=== PATIENT | male | born 1980 | race Caucasian/White ===

== ENCOUNTER 2019-12-19 00:01 | Emergency (ER) | payer BC ==
[~2019-12-19] VITALS: Ht 182.9 cm; Wt 104.3 kg
[2019-12-19] MEDS ORDERED: HYDROCODONE/APAP 10MG-325MG TAB PO ONE (00:45)
--- NOTE | 2019-12-19 01:44 | Diagnostic Imaging Report ---
EXAMINATION: RIBS UNILAT W/CXR MULTIPLE VIEWS WITH CHEST PA INDICATION: s/p fall, left rib pain COMPARISON: None FINDINGS: TUBES and LINES: None. LUNGS: Lungs are well inflated. Lungs are clear. There is no evidence of pneumonia or pulmonary edema. PLEURA: No pleural effusion or pneumothorax. Biapical pleural scarring. HEART AND MEDIASTINUM: The cardiomediastinal silhouette is unremarkable. BONES AND SOFT TISSUES: Displaced fracture of the posterior left fourth rib with sclerotic margins. Cortical Deformity of the left anterolateral seventh rib. UPPER ABDOMEN: No free air under the diaphragm. IMPRESSION: 1. Displaced fracture of the posterior left fourth rib. 2. Possible nondisplaced fracture of the left anterolateral seventh rib. Signed by: Dr. Edouard Zapata M.D. on 12/19/2019 1:42 AM
--- NOTE | 2019-12-19 01:46 | Diagnostic Imaging Report ---
WRIST COMPLETE RIGHT - 3 views HISTORY: Pain status post fall. COMPARISON: None available. FINDINGS: Bones: No acute displaced fracture. Osseous alignment is within normal limits. Joints: The joint spaces are well-maintained. Soft tissues: The soft tissues appear unremarkable. IMPRESSION: No acute radiographic abnormality. Signed by: Dr. Edouard Zapata M.D. on 12/19/2019 1:43 AM
--- NOTE | 2019-12-19 01:52 | Diagnostic Imaging Report ---
FOOT RIGHT COMPLETE - 3 views HISTORY: Pain status post fall. COMPARISON: None available. FINDINGS: Bones: No acute displaced fracture. Osseous alignment is within normal limits. There is a 1.1 cm ossicle projected on the medial aspect of the talonavicular joint on the frontal view. Joints: The joint spaces are well-maintained. Soft tissues: The soft tissues appear unremarkable. IMPRESSION: No acute osseous abnormality. Signed by: Dr. Edouard Zapata M.D. on 12/19/2019 1:49 AM
[2019-12-19 02:21] VITALS: BP 170/98
== END 2019-12-19 02:20 | disposition home or self-care (01) ==
LOC: ER 00:01
DX: S63.521A Sprain of radiocarpal joint of right wrist, initial encounter (principal); S22.32XA Fracture of one rib, left side, initial encounter for closed fracture; S90.31XA Contusion of right foot, initial encounter; W10.8XXA Fall (on) (from) other stairs and steps, initial encounter; Y93.01 Activity, walking, marching and hiking; Y92.018 Other place in single-family (private) house as the place of occurrence of the external cause; F17.200 Nicotine dependence, unspecified, uncomplicated
CPT/HCPCS: 71101; 99283